=== PATIENT | female | born 1935 | race African-American/Black ===

== ENCOUNTER 2021-11-04 16:13 | Inpatient (IN) ==
[2021-11-04 17:38] LABS: Albumin 3.4 G/DL (3.4-5.0); Bilirubin,Total 0.4 MG/DL (0.20-1.00); Calcium 9.1 MG/DL (8.5-10.1); Osmolality,Calculated 285.7 MOS/KG (273-304); Potassium 4.7 MMOL/L (3.5-5.1); Total Protein 8.2 G/DL (6.4-8.2)
[2021-11-04 17:45] LABS: Basophils % 0.3 % (0.0-0.8); Eosinophils # 0.1 10*3/uL (0.0-0.87); Hematocrit 34.5 VOL% (35.7-47.0); Hemoglobin 10.6 GM/DL (12.0-16.0); Immature Granulocytes % 0.4 %; Immature Granulocytes Absolute 0.03 #; Lymphocytes # 1.8 10*3/uL (1.4-4.0); Lymphocytes % 23.3 % (21.3-54.2); Mean Corpuscular HGB Conc 30.7 GM/DL (32-36); Mean Corpuscular Volume 91.3 FL (87-102); Mean Platelet Volume 10.5 FL (9.6-12.0); Monocytes # 1.1 10*3/uL (0.11-0.8); Monocytes % 14.7 % (1.7-12.7); Neutrophils % 60.3 % (38.7-73.9); Platelet Count 224 T/CUMM (130-400); Red Blood Count 3.78 MC/CUMM (3.8-5.5); Red Cell Distribution Width 15.4 % (9.3-17.3); White Blood Count 7.7 T/CUMM (4-12)
[2021-11-04 17:59] LABS: INR 1.3; PT Patient Result 14.6 SECS (10.1-12.1); Partial Thromboplastin Time 33.5 SECS (23.7-32.9)
[2021-11-04 18:42] LABS: Bacteria,Urine Occasional /HPF (Few); Mucus,Urine Occasional /LPF (Occasional); RBC,Urine 2 /HPF (0-4); Squamous Epithelial Cell,Urine Occasional /HPF (0-10)
[2021-11-04 18:47] LABS: Glucose,Urine (UA) Negative (Negative); Protein,Urine Negative (Negative); Urine Appearance Clear (Clear); Urine Color Yellow (Yellow); Urine Specific Gravity 1.015 (1.001-1.035)
[2021-11-04 18:48] LABS: Bilirubin,Urine Negative (Negative); Blood, Urine Negative (Negative); Ketones,Urine Negative (Negative); Nitrite,Urine Negative (Negative)
[2021-11-04] MEDS ORDERED: ACETAMINOPHEN 325 MG TABLET PO PRN (19:17)
[2021-11-04] MEDS ORDERED: DEXTROSE 10% 250 ML BAG IV PRN (19:17)
[2021-11-04] MEDS ORDERED: GLUCAGON 1 MG VIAL IM PRN (19:17)
[2021-11-04] MEDS: ONDANSETRON 4 MG/2 ML VIAL IV PRN (19:33)
[2021-11-04] MEDS: MORPHINE 2 MG/1 ML SYRINGE IV PRN ×2 (19:33→23:23)
[2021-11-04] MEDS ORDERED: DEXTROSE 50% 25 GM/50 ML VIAL IV PRN (20:42)
[2021-11-04] MEDS: INSULIN REGULAR 100 UNIT/ML SUBCUT SCH (23:22)
[2021-11-05 00:44] LABS: Basophils % 0.1 % (0.0-0.8); Eosinophils # 0.1 10*3/uL (0.0-0.87); Eosinophils % 1.5 % (0.00-10.9); Hematocrit 30.7 VOL% (35.7-47.0); Hemoglobin 9.4 GM/DL (12.0-16.0); Immature Granulocytes % 0.2 %; Immature Granulocytes Absolute 0.02 #; Lymphocytes # 1.5 10*3/uL (1.4-4.0); Lymphocytes % 17.6 % (21.3-54.2); Mean Corpuscular HGB Conc 30.6 GM/DL (32-36); Mean Corpuscular Volume 92.7 FL (87-102); Mean Platelet Volume 9.5 FL (9.6-12.0); Monocytes # 1.5 10*3/uL (0.11-0.8); Monocytes % 17.3 % (1.7-12.7); Neutrophils % 63.3 % (38.7-73.9); Platelet Count 170 T/CUMM (130-400); Red Blood Count 3.31 MC/CUMM (3.8-5.5); Red Cell Distribution Width 15.2 % (9.3-17.3); White Blood Count 8.5 T/CUMM (4-12)
[2021-11-05 01:09] LABS: Eosinophils 1 % (0-10); Lymphocytes 18 % (20-55); Platelet Estimate Adequate; Total Cells Counted 100
[2021-11-05 01:18] LABS: Calcium 9.1 MG/DL (8.5-10.1); Potassium 4.9 MMOL/L (3.5-5.1)
[2021-11-05] MEDS: MORPHINE 2 MG/1 ML SYRINGE IV PRN (04:25)
[2021-11-05] MEDS: INSULIN REGULAR 100 UNIT/ML SUBCUT SCH ×4 (08:26→21:53)
[2021-11-05] MEDS: LACTATED RINGERS 1,000 ML IV SCH ×2 (11:30→17:05)
[2021-11-05] MEDS ORDERED: fentaNYL 100 MCG/2 ML VIAL ONE (12:24)
[2021-11-05] MEDS ORDERED: propofoL 200 MG/20 ML VIAL IV ONE (12:24)
[2021-11-05] MEDS ORDERED: LIDOCAINE 2% 5 ML VIAL ONE (12:24)
[2021-11-05] MEDS ORDERED: ETOMIDATE 40 MG/20 ML VIAL IV ONE (12:24)
[2021-11-05] MEDS ORDERED: SUCCINYLCHOLINE 200 MG/10 ML VIAL ONE (12:26)
[2021-11-05] MEDS ORDERED: LACTATED RINGERS 1,000 ML IV SCH (13:30)
[2021-11-05] MEDS ORDERED: BUPIVACAINE MPF 0.5% 30 ML VIAL ONE (15:44)
[2021-11-05] MEDS ORDERED: MORPHINE 2 MG/1 ML SYRINGE IV PRN (16:26)
[2021-11-05] MEDS ORDERED: NEOMYCIN/POLYMYXIN/BACITRACIN OINT 28.4 GM TUBE TOP ONE (16:26)
[2021-11-05] MEDS ORDERED: TRANEXAMIC ACID 1,000 MG/10 ML VIAL ONE (16:29)
[2021-11-06] MEDS: MORPHINE 2 MG/1 ML SYRINGE IV PRN (04:50)
[2021-11-06] MEDS: LACTATED RINGERS 1,000 ML IV SCH (05:06)
[2021-11-06 06:11] LABS: Basophils % 0.2 % (0.0-0.8); Eosinophils % 0.2 % (0.00-10.9); Hematocrit 29.1 VOL% (35.7-47.0); Hemoglobin 8.7 GM/DL (12.0-16.0); Immature Granulocytes % 0.6 %; Immature Granulocytes Absolute 0.05 #; Lymphocytes % 11.8 % (21.3-54.2); Mean Corpuscular HGB Conc 29.9 GM/DL (32-36); Mean Corpuscular Volume 93.9 FL (87-102); Mean Platelet Volume 10.5 FL (9.6-12.0); Monocytes # 1.2 10*3/uL (0.11-0.8); Monocytes % 13.3 % (1.7-12.7); Neutrophils % 73.9 % (38.7-73.9); Platelet Count 178 T/CUMM (130-400); Red Cell Distribution Width 15.2 % (9.3-17.3); White Blood Count 8.7 T/CUMM (4-12)
[2021-11-06 06:32] LABS: Calcium 9.3 MG/DL (8.5-10.1); Osmolality,Calculated 288.5 MOS/KG (273-304)
[2021-11-06] MEDS ORDERED: LACTATED RINGERS 1,000 ML IV SCH (07:30)
[2021-11-06] MEDS ORDERED: GLUCAGON 1 MG VIAL IM PRN (07:46)
[2021-11-06] MEDS ORDERED: DEXTROSE 50% 25 GM/50 ML VIAL IV PRN (07:46)
[2021-11-06] MEDS: FONDAPARINUX 2.5 MG/0.5 ML SYRINGE SUBCUT SCH (09:13)
[2021-11-06] MEDS: INSULIN REGULAR 100 UNIT/ML SUBCUT SCH ×4 (09:13→21:12)
[2021-11-06] MEDS ORDERED: TUBERCULIN SKIN TEST 0.1 ML SYRINGE INTRADERM ONE (10:00)
[2021-11-07 04:58] LABS: Basophils % 0.1 % (0.0-0.8); Eosinophils % 0.2 % (0.00-10.9); Hematocrit 25.4 VOL% (35.7-47.0); Immature Granulocytes % 0.6 %; Immature Granulocytes Absolute 0.05 #; Lymphocytes # 1.1 10*3/uL (1.4-4.0); Lymphocytes % 12.8 % (21.3-54.2); Mean Corpuscular HGB Conc 31.5 GM/DL (32-36); Mean Corpuscular Volume 88.2 FL (87-102); Mean Platelet Volume 10.1 FL (9.6-12.0); Monocytes # 1.3 10*3/uL (0.11-0.8); Monocytes % 15.2 % (1.7-12.7); Neutrophils % 71.1 % (38.7-73.9); Platelet Count 168 T/CUMM (130-400); Red Blood Count 2.88 MC/CUMM (3.8-5.5); Red Cell Distribution Width 14.7 % (9.3-17.3); White Blood Count 8.6 T/CUMM (4-12)
[2021-11-07 05:23] LABS: Calcium 8.8 MG/DL (8.5-10.1); Osmolality,Calculated 278.8 MOS/KG (273-304); Potassium 3.9 MMOL/L (3.5-5.1)
[2021-11-07] MEDS: DOCUSATE SODIUM 100 MG CAPSULE PO PRN (08:23)
[2021-11-07] MEDS: FONDAPARINUX 2.5 MG/0.5 ML SYRINGE SUBCUT SCH (08:24)
[2021-11-07] MEDS: INSULIN REGULAR 100 UNIT/ML SUBCUT SCH ×4 (08:25→20:47)
[2021-11-07] MEDS: LORazepam 1 MG TABLET PO PRN (18:04)
[2021-11-07] MEDS: RIVASTIGMINE 1.5 MG CAPSULE PO SCH (20:45)
[2021-11-07] MEDS: SIMVASTATIN 10 MG TABLET PO SCH (20:45)
[2021-11-07] MEDS: MEMANTINE 10 MG TABLET PO SCH (20:45)
[2021-11-07] MEDS: CITALOPRAM 20 MG TABLET PO SCH (20:45)
[2021-11-07] MEDS: INSULIN GLARGINE 100 UNIT/ML SUBCUT SCH (20:46)
[2021-11-07] MEDS: traZODone 50 MG TABLET PO SCH (20:46)
[2021-11-08 05:50] LABS: Basophils % 0.1 % (0.0-0.8); Eosinophils % 0.3 % (0.00-10.9); Hematocrit 26.6 VOL% (35.7-47.0); Hemoglobin 8.4 GM/DL (12.0-16.0); Immature Granulocytes % 0.5 %; Immature Granulocytes Absolute 0.04 #; Lymphocytes # 1.1 10*3/uL (1.4-4.0); Lymphocytes % 13.4 % (21.3-54.2); Mean Corpuscular HGB Conc 31.6 GM/DL (32-36); Mean Corpuscular Volume 88.1 FL (87-102); Mean Platelet Volume 10.7 FL (9.6-12.0); Monocytes % 12.2 % (1.7-12.7); Neutrophils % 73.5 % (38.7-73.9); Platelet Count 179 T/CUMM (130-400); Red Blood Count 3.02 MC/CUMM (3.8-5.5); Red Cell Distribution Width 14.6 % (9.3-17.3); White Blood Count 7.9 T/CUMM (4-12)
[2021-11-08] MEDS: MAGNESIUM HYDROXIDE SUSP 30 ML UDCUP PO PRN (05:52)
[2021-11-08 06:13] LABS: Calcium 8.9 MG/DL (8.5-10.1)
[2021-11-08] MEDS: MEMANTINE 10 MG TABLET PO SCH ×2 (08:49→20:22)
[2021-11-08] MEDS: MULTIVITAMIN (CENTRUM) TABLET PO SCH (08:49)
[2021-11-08] MEDS: RIVASTIGMINE 1.5 MG CAPSULE PO SCH ×2 (08:49→20:22)
[2021-11-08] MEDS: INSULIN REGULAR 100 UNIT/ML SUBCUT SCH ×4 (08:50→20:38)
[2021-11-08] MEDS: DONEPEZIL 10 MG TABLET PO SCH (08:50)
[2021-11-08] MEDS: amLODIPine 5 MG TABLET PO SCH (08:50)
[2021-11-08] MEDS: FONDAPARINUX 2.5 MG/0.5 ML SYRINGE SUBCUT SCH (08:51)
[2021-11-08] MEDS: MORPHINE 2 MG/1 ML SYRINGE IV PRN ×2 (08:51→20:39)
[2021-11-08] MEDS: TAMOXIFEN 10 MG TABLET PO SCH (10:46)
[2021-11-08] MEDS: CITALOPRAM 20 MG TABLET PO SCH (20:22)
[2021-11-08] MEDS: SIMVASTATIN 10 MG TABLET PO SCH (20:22)
[2021-11-08] MEDS: traZODone 50 MG TABLET PO SCH (20:23)
[2021-11-08] MEDS: LORazepam 1 MG TABLET PO PRN (20:37)
[2021-11-08] MEDS: INSULIN GLARGINE 100 UNIT/ML SUBCUT SCH (20:38)
[2021-11-09 05:08] LABS: Basophils % 0.1 % (0.0-0.8); Eosinophils # 0.1 10*3/uL (0.0-0.87); Eosinophils % 1.1 % (0.00-10.9); Hematocrit 23.1 VOL% (35.7-47.0); Hemoglobin 7.3 GM/DL (12.0-16.0); Immature Granulocytes % 0.7 %; Immature Granulocytes Absolute 0.05 #; Lymphocytes # 1.3 10*3/uL (1.4-4.0); Lymphocytes % 18.6 % (21.3-54.2); Mean Corpuscular HGB Conc 31.6 GM/DL (32-36); Mean Corpuscular Volume 87.2 FL (87-102); Monocytes # 0.9 10*3/uL (0.11-0.8); Neutrophils % 67.5 % (38.7-73.9); Platelet Count 198 T/CUMM (130-400); Red Blood Count 2.65 MC/CUMM (3.8-5.5); Red Cell Distribution Width 14.6 % (9.3-17.3); White Blood Count 7.1 T/CUMM (4-12)
[2021-11-09 05:27] LABS: Calcium 8.6 MG/DL (8.5-10.1); Osmolality,Calculated 275.1 MOS/KG (273-304); Potassium 4.2 MMOL/L (3.5-5.1)
[2021-11-09] MEDS ORDERED: SODIUM CHLORIDE 0.9% 1,000 ML IV PRN (07:47)
[2021-11-09] MEDS: INSULIN REGULAR 100 UNIT/ML SUBCUT SCH ×4 (08:40→21:14)
[2021-11-09] MEDS: POLYETHYLENE GLYCOL POWDER 17 GM PACK PO PRN (08:41)
[2021-11-09] MEDS: DONEPEZIL 10 MG TABLET PO SCH (08:41)
[2021-11-09] MEDS: amLODIPine 5 MG TABLET PO SCH (08:41)
[2021-11-09] MEDS: RIVASTIGMINE 1.5 MG CAPSULE PO SCH ×2 (08:41→21:13)
[2021-11-09] MEDS: MEMANTINE 10 MG TABLET PO SCH ×2 (08:41→21:13)
[2021-11-09] MEDS: FONDAPARINUX 2.5 MG/0.5 ML SYRINGE SUBCUT SCH (08:41)
[2021-11-09] MEDS: MULTIVITAMIN (CENTRUM) TABLET PO SCH (08:41)
[2021-11-09] MEDS: TAMOXIFEN 10 MG TABLET PO SCH (08:42)
[2021-11-09 09:31] LABS: % Iron Saturation 10.8 % (18-50); Ferritin 515.5 ng/mL (8-252)
[2021-11-09 10:48] LABS: Eosinophils # 0.1 10*3/uL (0.0-0.87); Eosinophils % 1.4 % (0.00-10.9); Hematocrit 26.7 VOL% (35.7-47.0); Hemoglobin 8.3 GM/DL (12.0-16.0); Immature Granulocytes % 0.5 %; Immature Granulocytes Absolute 0.03 #; Lymphocytes # 1.1 10*3/uL (1.4-4.0); Lymphocytes % 19.2 % (21.3-54.2); Mean Corpuscular HGB Conc 31.1 GM/DL (32-36); Mean Corpuscular Volume 89.6 FL (87-102); Mean Platelet Volume 10.1 FL (9.6-12.0); Monocytes # 0.4 10*3/uL (0.11-0.8); Monocytes % 7.3 % (1.7-12.7); Neutrophils % 71.6 % (38.7-73.9); Platelet Count 259 T/CUMM (130-400); Red Blood Count 2.98 MC/CUMM (3.8-5.5); Red Cell Distribution Width 14.8 % (9.3-17.3); White Blood Count 5.9 T/CUMM (4-12)
[2021-11-09 11:11] LABS: Folate > 24.00 NG/ML (5.38-24.0); Vitamin B12 1158 PG/ML (211-911)
[2021-11-09] MEDS: ONDANSETRON 4 MG/2 ML VIAL IV PRN (12:02)
[2021-11-09 12:03] LABS: Sedimentation Rate-Westergren 124 MM/HR (0-30)
[2021-11-09 18:13] LABS: Hematocrit 28.2 VOL% (35.7-47.0); Hemoglobin 9.3 GM/DL (12.0-16.0)
[2021-11-09] MEDS: FERROUS SULFATE 325 MG TABLET PO SCH (21:13)
[2021-11-09] MEDS: SIMVASTATIN 10 MG TABLET PO SCH (21:13)
[2021-11-09] MEDS: CITALOPRAM 20 MG TABLET PO SCH (21:13)
[2021-11-09] MEDS: traZODone 50 MG TABLET PO SCH (21:13)
[2021-11-09] MEDS: INSULIN GLARGINE 100 UNIT/ML SUBCUT SCH (21:14)
[2021-11-10] MEDS: INSULIN REGULAR 100 UNIT/ML SUBCUT SCH ×4 (07:27→20:53)
[2021-11-10 08:02] LABS: Basophils % 0.1 % (0.0-0.8); Eosinophils # 0.1 10*3/uL (0.0-0.87); Hematocrit 30.4 VOL% (35.7-47.0); Hemoglobin 9.8 GM/DL (12.0-16.0); Immature Granulocytes % 0.5 %; Immature Granulocytes Absolute 0.04 #; Lymphocytes # 1.1 10*3/uL (1.4-4.0); Lymphocytes % 14.2 % (21.3-54.2); Mean Corpuscular HGB Conc 32.2 GM/DL (32-36); Mean Corpuscular Volume 87.1 FL (87-102); Mean Platelet Volume 10.8 FL (9.6-12.0); Monocytes # 0.9 10*3/uL (0.11-0.8); Monocytes % 12.2 % (1.7-12.7); NRBC # 0.02 10*3/uL; Red Blood Count 3.49 MC/CUMM (3.8-5.5); Red Cell Distribution Width 14.5 % (9.3-17.3); White Blood Count 7.6 T/CUMM (4-12)
[2021-11-10 08:13] LABS: Platelet Count 181 T/CUMM (130-400)
[2021-11-10 08:20] LABS: Calcium 8.5 MG/DL (8.5-10.1); Osmolality,Calculated 273.1 MOS/KG (273-304); Potassium 4.4 MMOL/L (3.5-5.1)
[2021-11-10] MEDS: DOCUSATE SODIUM 100 MG CAPSULE PO PRN ×2 (09:04→20:51)
[2021-11-10] MEDS: FERROUS SULFATE 325 MG TABLET PO SCH ×2 (09:04→20:52)
[2021-11-10] MEDS: MULTIVITAMIN (CENTRUM) TABLET PO SCH (09:04)
[2021-11-10] MEDS: POLYETHYLENE GLYCOL POWDER 17 GM PACK PO PRN (09:04)
[2021-11-10] MEDS: amLODIPine 5 MG TABLET PO SCH (09:04)
[2021-11-10] MEDS: FONDAPARINUX 2.5 MG/0.5 ML SYRINGE SUBCUT SCH (09:04)
[2021-11-10] MEDS: MEMANTINE 10 MG TABLET PO SCH ×2 (09:04→20:51)
[2021-11-10] MEDS: RIVASTIGMINE 1.5 MG CAPSULE PO SCH ×2 (09:04→20:51)
[2021-11-10] MEDS: TAMOXIFEN 10 MG TABLET PO SCH (09:04)
[2021-11-10] MEDS: DONEPEZIL 10 MG TABLET PO SCH (09:04)
[2021-11-10] MEDS: MAGNESIUM HYDROXIDE SUSP 30 ML UDCUP PO PRN (16:54)
[2021-11-10] MEDS: SIMVASTATIN 10 MG TABLET PO SCH (20:51)
[2021-11-10] MEDS: CITALOPRAM 20 MG TABLET PO SCH (20:52)
[2021-11-10] MEDS: traZODone 50 MG TABLET PO SCH (20:52)
[2021-11-10] MEDS: INSULIN GLARGINE 100 UNIT/ML SUBCUT SCH (20:53)
[2021-11-11 05:28] LABS: Basophils % 0.1 % (0.0-0.8); Eosinophils # 0.1 10*3/uL (0.0-0.87); Eosinophils % 1.8 % (0.00-10.9); Hematocrit 29.3 VOL% (35.7-47.0); Hemoglobin 9.5 GM/DL (12.0-16.0); Immature Granulocytes % 0.9 %; Immature Granulocytes Absolute 0.07 #; Lymphocytes # 1.2 10*3/uL (1.4-4.0); Lymphocytes % 16.4 % (21.3-54.2); Mean Corpuscular HGB Conc 32.4 GM/DL (32-36); Monocytes # 1.1 10*3/uL (0.11-0.8); Neutrophils % 65.8 % (38.7-73.9); Platelet Count 268 T/CUMM (130-400); Red Blood Count 3.33 MC/CUMM (3.8-5.5); Red Cell Distribution Width 14.5 % (9.3-17.3); White Blood Count 7.4 T/CUMM (4-12)
[2021-11-11 05:44] LABS: Calcium 8.8 MG/DL (8.5-10.1); Osmolality,Calculated 279.7 MOS/KG (273-304); Potassium 4.1 MMOL/L (3.5-5.1)
[2021-11-11] MEDS: INSULIN REGULAR 100 UNIT/ML SUBCUT SCH ×4 (07:32→21:53)
[2021-11-11] MEDS: MULTIVITAMIN (CENTRUM) TABLET PO SCH (08:04)
[2021-11-11] MEDS: RIVASTIGMINE 1.5 MG CAPSULE PO SCH ×2 (08:04→21:53)
[2021-11-11] MEDS: FERROUS SULFATE 325 MG TABLET PO SCH ×2 (08:04→21:54)
[2021-11-11] MEDS: amLODIPine 5 MG TABLET PO SCH (08:04)
[2021-11-11] MEDS: MEMANTINE 10 MG TABLET PO SCH ×2 (08:04→21:53)
[2021-11-11] MEDS: DONEPEZIL 10 MG TABLET PO SCH (08:04)
[2021-11-11] MEDS: FONDAPARINUX 2.5 MG/0.5 ML SYRINGE SUBCUT SCH (08:07)
[2021-11-11] MEDS: TAMOXIFEN 10 MG TABLET PO SCH (08:08)
[2021-11-11] MEDS ORDERED: BISACODYL 5 MG TABLET PO PRN (11:14)
[2021-11-11] MEDS ORDERED: BISACODYL 5 MG TABLET PO ONE (11:14)
[2021-11-11] MEDS: POLYETHYLENE GLYCOL POWDER 17 GM PACK PO SCH (12:34)
[2021-11-11] MEDS: INSULIN GLARGINE 100 UNIT/ML SUBCUT SCH (21:52)
[2021-11-11] MEDS: traZODone 50 MG TABLET PO SCH (21:53)
[2021-11-11] MEDS: CITALOPRAM 20 MG TABLET PO SCH (21:53)
[2021-11-11] MEDS: SIMVASTATIN 10 MG TABLET PO SCH (21:54)
[2021-11-12 05:16] LABS: Basophils % 0.3 % (0.0-0.8); Eosinophils # 0.1 10*3/uL (0.0-0.87); Eosinophils % 1.4 % (0.00-10.9); Hematocrit 28.5 VOL% (35.7-47.0); Hemoglobin 9.1 GM/DL (12.0-16.0); Immature Granulocytes Absolute 0.07 #; Lymphocytes # 1.5 10*3/uL (1.4-4.0); Lymphocytes % 21.7 % (21.3-54.2); Mean Corpuscular HGB Conc 31.9 GM/DL (32-36); Mean Platelet Volume 10.2 FL (9.6-12.0); Monocytes # 1.1 10*3/uL (0.11-0.8); Monocytes % 15.9 % (1.7-12.7); Neutrophils % 59.7 % (38.7-73.9); Platelet Count 294 T/CUMM (130-400); Red Blood Count 3.24 MC/CUMM (3.8-5.5); Red Cell Distribution Width 14.5 % (9.3-17.3)
[2021-11-12 05:39] LABS: Eosinophils 3 % (0-10); Hypochromia Slight; Lymphocytes 19 % (20-55); Microcytosis Slight; Platelet Estimate Adequate; Total Cells Counted 100
[2021-11-12 05:44] LABS: Calcium 8.7 MG/DL (8.5-10.1); Osmolality,Calculated 276.7 MOS/KG (273-304)
[2021-11-12] MEDS: INSULIN REGULAR 100 UNIT/ML SUBCUT SCH ×4 (07:21→22:08)
[2021-11-12] MEDS: POLYETHYLENE GLYCOL POWDER 17 GM PACK PO SCH (08:41)
[2021-11-12] MEDS: RIVASTIGMINE 1.5 MG CAPSULE PO SCH ×2 (08:41→22:07)
[2021-11-12] MEDS: TAMOXIFEN 10 MG TABLET PO SCH (08:41)
[2021-11-12] MEDS: MEMANTINE 10 MG TABLET PO SCH ×2 (08:42→22:07)
[2021-11-12] MEDS: FERROUS SULFATE 325 MG TABLET PO SCH ×2 (08:42→16:04)
[2021-11-12] MEDS: DONEPEZIL 10 MG TABLET PO SCH (08:42)
[2021-11-12] MEDS: amLODIPine 5 MG TABLET PO SCH (08:42)
[2021-11-12] MEDS: MULTIVITAMIN (CENTRUM) TABLET PO SCH (08:42)
[2021-11-12] MEDS: FONDAPARINUX 2.5 MG/0.5 ML SYRINGE SUBCUT SCH (08:42)
[2021-11-12 09:47] LABS: Hemoglobin A1 (Alkaline) 97.7 % (96.5-98.5); Hemoglobin A2 (Alkaline) 2.3 % (1.5-3.5)
[2021-11-12] MEDS: SIMVASTATIN 10 MG TABLET PO SCH (22:07)
[2021-11-12] MEDS: INSULIN GLARGINE 100 UNIT/ML SUBCUT SCH (22:07)
[2021-11-12] MEDS: CITALOPRAM 20 MG TABLET PO SCH (22:07)
[2021-11-12] MEDS: traZODone 50 MG TABLET PO SCH (22:07)
[2021-11-13 05:04] LABS: Basophils % 0.3 % (0.0-0.8); Eosinophils # 0.1 10*3/uL (0.0-0.87); Eosinophils % 0.9 % (0.00-10.9); Hematocrit 28.4 VOL% (35.7-47.0); Hemoglobin 9.1 GM/DL (12.0-16.0); Immature Granulocytes % 1.4 %; Immature Granulocytes Absolute 0.08 #; Lymphocytes # 1.3 10*3/uL (1.4-4.0); Lymphocytes % 22.7 % (21.3-54.2); Mean Corpuscular Volume 87.1 FL (87-102); Mean Platelet Volume 9.7 FL (9.6-12.0); Monocytes % 16.9 % (1.7-12.7); Neutrophils % 57.8 % (38.7-73.9); Platelet Count 358 T/CUMM (130-400); Red Blood Count 3.26 MC/CUMM (3.8-5.5); Red Cell Distribution Width 14.2 % (9.3-17.3); White Blood Count 5.9 T/CUMM (4-12)
[2021-11-13 05:25] LABS: Calcium 9.2 MG/DL (8.5-10.1); Osmolality,Calculated 270.2 MOS/KG (273-304); Potassium 3.9 MMOL/L (3.5-5.1)
[2021-11-13 05:27] LABS: Band Neutrophils 1 % (0-10); Eosinophils 4 % (0-10); Hypochromia Slight; Lymphocytes 13 % (20-55); Microcytosis Slight; Platelet Estimate Adequate; Total Cells Counted 100
[2021-11-13] MEDS: INSULIN REGULAR 100 UNIT/ML SUBCUT SCH (07:18)
[2021-11-13] MEDS: amLODIPine 5 MG TABLET PO SCH (08:04)
[2021-11-13] MEDS: MULTIVITAMIN (CENTRUM) TABLET PO SCH (08:04)
[2021-11-13] MEDS: TAMOXIFEN 10 MG TABLET PO SCH (08:04)
[2021-11-13] MEDS: MEMANTINE 10 MG TABLET PO SCH (08:04)
[2021-11-13] MEDS: POLYETHYLENE GLYCOL POWDER 17 GM PACK PO SCH (08:05)
[2021-11-13] MEDS: RIVASTIGMINE 1.5 MG CAPSULE PO SCH (08:05)
[2021-11-13] MEDS: FONDAPARINUX 2.5 MG/0.5 ML SYRINGE SUBCUT SCH (08:05)
[2021-11-13] MEDS: DONEPEZIL 10 MG TABLET PO SCH (08:05)
[2021-11-13] MEDS: FERROUS SULFATE 325 MG TABLET PO SCH (08:05)
[2021-11-13 11:00] VITALS: BP 150/56
== END 2021-11-13 11:11 | disposition hospice, home (50) | DRG 481 ==
LOC: N.ED 16:13 → SUATTDRO 19:16 → N.EDINP 19:16 → N.3E 19:52
PROVIDERS: ADMIT Internal Medicine; ATTEND Internal Medicine